=== PATIENT | male | born 1975 | race Caucasian/White ===

== ENCOUNTER 2018-06-04 06:18 | Emergency (ER) | payer OTHER ==
[2018-06-04] MEDS: CEPHALEXIN 500 MG CAP PO (08:44)
[2018-06-04] MEDS: TRIMETHOPRIM/SULFAMETHOX (DS) TAB PO (08:44)
[2018-06-04] MEDS: HYDROCODONE/APAP (5/325) TAB PO (08:45)
[2018-06-04] MEDS: LIDOCAINE 4% CR TOP (08:47)
== END 2018-06-04 11:04 | disposition home or self-care (01) ==
LOC: FTE 06:18
DX: K61.0 Anal abscess (principal); F17.210 Nicotine dependence, cigarettes, uncomplicated
CPT/HCPCS: 46050; 99284-25